=== PATIENT | female | born 2000 | race Two or more races ===

== ENCOUNTER → 2024-04-08 08:03 | Outpatient (BNVA) | payer OTHER, SELFPAY | PROVIDERS: Visit Provider Physician Assistant Medical | DX: S67.192A Crushing injury of right middle finger, initial encounter (principal); S67.194A Crushing injury of right ring finger, initial encounter; W31.89XA Contact with other specified machinery, initial encounter; Z23 Encounter for immunization | CPT/HCPCS: 73130; 73140; 90715; 99204 ==